=== PATIENT | male | born 1995 | race Caucasian/White ===

== ENCOUNTER 2017-12-10 14:06 | Emergency (ER) | payer BC ==
--- NOTE | 2017-12-10 14:36 | EDPHY ---
H & P Smoking Status: Never smoked <Jonathan Ozuna - Last Filed: 12/10/17 14:57> <Jadon Retana - Last Filed: 12/10/17 16:57> Time Seen by Provider: 12/10/17 14:19 HPI/ROS: Chief complaint. Lump on testicle HPI. 22-year-old male presents to the emergency department with 4 day history of noticing a lump on his right testicle. It began after he felt he was constipated and was pushing harder than usual to have a bowel movement. Later he felt pain in his right testicle and maybe slight swelling. Pain is decreased. No fever. Otherwise no injury. No urinary symptoms, or discharge from his penis. No new or different sex partners or unprotected intercourse. No previous similar symptoms. ROS Constitutional. no fever/chills, no weakness Eyes. no problems with vision ENT. no sore throat, no nasal drainage Cardiovascular. no chest pain Respiratory. no shortness of breath, no cough Abdominal. no abdominal pain, no nausea/vomiting, no diarrhea; lump on right testicle . no problems urinating MS. no calf pain/swelling, no neck/back pain, no joint pain Skin. no rash Lymph. no swollen glands Neuro. no headache, no dizziness, no difficulty walking or with speech (Jonathan Ozuna) Past Medical/Surgical History: Healthy (Jonathan Ozuna) Social History: Single, nonsmoker, no alcohol (Jonathan Ozuna) Physical Exam: General Appearance: Alert well-developed male mild distress vital signs are stable Eyes: Pupils equal and round no pallor or injection. ENT, Mouth: Mucous membranes are moist. Respiratory: There are no retractions, lungs are clear to auscultation. Cardiovascular: Regular rate and rhythm. Gastrointestinal: Abdomen is soft and nontender, no masses, bowel sounds normal. Patient is circumcised. Testicles are descended and in normal anatomic position. The patient has a 2-3 mm nodule in the upper pole of the testicle or epididymis. No significant swelling. Neurological: Awake and alert, sensory and motor exams grossly normal. Skin: Warm and dry, no rashes. Musculoskeletal: Neck is supple nontender. Extremities symmetrical, full range of motion. Psychiatric: Patient is oriented X 3, there is no agitation. (Laith,Jonathan S) Constitutional: Initial Vital Signs Temperature (C) 36.7 C 12/10/17 14:15 Heart Rate 91 12/10/17 14:15 Respiratory Rate 16 12/10/17 14:15 Blood Pressure 168/94 H 12/10/17 14:15 O2 Sat (%) 97 12/10/17 14:15 O2 Delivery Mode Room Air Allergies/Adverse Reactions: No Known Allergies Allergy (Unverified 12/10/17 14:15) Home Medications: Medication Instructions Recorded NK [No Known Home Meds] 12/10/17 Medical Decision Making <Jonathan Ozuna - Last Filed: 12/10/17 14:57> - Diagnostics Imaging: Discussed imaging studies w/ fisher scallop Radiologist <Jadon Retana - Last Filed: 12/10/17 16:57> - Diagnostics Imaging Results: Imaging Impressions Testicular Ultrasound 12/10/17 14:56 Impression: Tiny epididymal head cyst on the right measuring 0.2 cm. Findings and recommendations discussed with Dr. Retana at 1538 hour, 12/10/2017. Differential Diagnosis: I am considering urinary tract infection, testicular torsion, testicular tumor. I suspect that this is will be torsion up the epididymal appendage (Jonathan Ozuna) 4:30 p.m. discussed the ultrasound results the patient. He is currently asymptomatic and states that does not bother middle unless he touches it than it hurts very slightly. We discussed prognosis and follow up with Urology. Patient understands and agrees with this plan. He declines further workup or testing at this time. (Jadon Retana) Care Turn Over: care to Dr. Retana at 3 pm (Jonathan Ozuna) - Data Points Laboratory Results: 12/10/17 14:50 Urine Color PALE YELLOW Urine Appearance CLEAR Urine pH 6.0 (5.0-7.5) Ur Specific [place] 1.002 (1.002-1.030) Urine Protein NEGATIVE (NEGATIVE) Urine Ketones NEGATIVE (NEGATIVE) Urine Blood NEGATIVE (NEGATIVE) Urine Nitrate NEGATIVE (NEGATIVE) Urine Bilirubin NEGATIVE (NEGATIVE) Urine Urobilinogen NEGATIVE EU EU (0.2-1.0) Ur Leukocyte Esterase NEGATIVE (NEGATIVE) Urine RBC 1-3 /hpf /hpf (0-3) Urine WBC 0-1 /hpf /hpf (0-3) Ur Epithelial Cells NONE SEEN /lpf /lpf (NONE-1+) Urine Glucose NEGATIVE (NEGATIVE) Departure <Jonathan Ozuna S - Last Filed: 12/10/17 14:57> <Jadon Retana - Last Filed: 12/10/17 16:57> - Departure Disposition: Home, Routine, Self-Care Clinical Impression: Epididymal cyst Condition: Fair Instructions: Cyst (ED) Referrals: NONE *PRIMARY CARE P,. [Primary Care Provider] - As per Instructions Uma Patricia MD [Medical Doctor] - 5-7 days, if not improved
[2017-12-10 16:49] VITALS: BP 135/71
== END 2017-12-10 16:40 | disposition home or self-care (01) ==
DX: N50.3 Cyst of epididymis (principal)